=== PATIENT | female | born 1935 | race Caucasian/White ===

== ENCOUNTER 2025-03-11 13:10 | Outpatient (REF) | payer BC, SELFPAY ==
--- OUTSIDE RECORDS SUMMARY | 2025-03-11 15:05 | XMS_ITS | Encounter Summary ---
Author Organization [facility] Address [address] [place] [address] Phone Care Team Providers Care Metal Hanger Name Role Phone Tenisha Delgado Md Primary Care Provider +1 [phone] Encounter Details Date Type Department Care Team (Late st Contact Info) Description 04/18/2022 Telephone [facility] [address] [place] [address] Riky Morales DO [address] [place] [address] Social History Tobacco Use Types Packs/Day Years Used Date Smoking Tobacco: Never Smokeless Tobacco: Never Alcohol Use Standard Drinks/Week Comments No 0 (1 standard drink = 0.6 oz pur e alcohol) Comments Unknown Sex and Gender Information Value Date Recorded Sex Assigned at Not on file Legal Sex Female 4:44 PM EST Gender Identity Not on file Sexual Orientation Not on file documented as of this encounter Miscellaneous Notes * Telephone Encounter - Riky Morales DO - 04/18/2022 3:08 PM EDT All set. * Telephone Encounter - Jacqueline Armijo - 04/18/2022 9:21 AM EDT Pt called, since stopping the isinopril her bp has been high. Today it was 151/89 and she is very light headed. Please call her back at [phone] Thank you documented in this encounter Plan of Treatment Upcoming Encounters Date Type Department Care Team (Late st Contact Info) Description 05/29/2025 1:30 PM EST [facility] [place] [facility] [address] [place] [phone] Alexander Cloud MD [address] [phone] documented as of this encounter Visit Diagnoses Not on filedocumented in this encounter Care Teams Metal Hanger Relationship Specialty Start Date End Date Tenisha Delgado Md [address] [place] [address] PCP - General 03/12/24 documented as of this encounter
--- OUTSIDE RECORDS SUMMARY | 2025-03-11 15:05 | XMS_ITS | Clinical Summary ---
Author Organization [facility] Address [address] [place] [address] Phone Care Team Providers Care Squeegee Finisher Name Role Phone Tenisha Delgado Md Primary Care Provider [phone] [phone] Allergies No known active allergies Medications Calcium-Magnesi um-Vitamin D (CITRACAL CALCIUM+D PO) Take 1 tablet by mouth 1 (one) time each day Active cholecalciferol (VITAMIN D-3) 25 MCG (1000 UT) capsule Take 1 capsule (1,000 Units total) by mouth every other day 06/01/2023 Active amLODIPine (NORVASC) 5 MG tablet Take 1 tablet (5 mg total) by mouth 1 (one) time each day 90 tablet 3 08/23/2024 Active Active Problems Problem Noted Date Diagnosed Date Hyperkalemia 09/26/2024 Chronic kidney disease stage 3 01/18/2022 Hypertensive renal disease 01/18/2022 Vesicoureteric reflux 01/18/2022 Hypertension 01/18/2022 Resolved Problems Problem Noted Date Diagnosed Date Resolved Date Chronic kidney disease, stage 4 (severe) 01/18/2022 05/24/2022 Encounters Date Type Department Care Team Description 01/12/2025 Orders Only [facility] [place] [address] [place] [address] Alexander Cloud MD Chronic kidney disease stage 3 (HCC); Hypertensive renal disease; Hyperkalemia from Last 3 Months Family History Medical History Relation Comments Dementia Father Heart disease Mother Hypertension Mother Diabetes Sibling 1 brother Bill Hypertension Sibling 2 All siblings Heart disease Sibling 3 Brother had a he art attack Cancer Sibling 4 sister had breas t- mastectomy Cancer Sister Relation Status Comments Father Mother Sibling 1 Sibling 2 Sibling 3 Sibling 4 Sister Social History Tobacco Use Types Packs/Day Years Used Date Smoking Tobacco: Never Smokeless Tobacco: Never Tobacco Cessation:Counseling Given: No Alcohol Use Standard Drinks/Week Comments No 0 (1 standard drink = 0.6 oz pur e alcohol) Comments Unknown Sex and Gender Information Value Date Recorded Sex Assigned at Not on file Legal Sex Female 4:44 PM EST Gender Identity Not on file Sexual Orientation Not on file Last Filed Vital Signs Vital Sign Reading Time Taken Comments Blood Pressure 147/74 09/26/2024 1:40 PM EDT Pulse 88 09/26/2024 1:40 PM EDT Temperature - - Respiratory Rate - - Oxygen Saturation - - Inhaled Oxygen Concentration - - Weight 52.2 kg (115 lb) 09/26/2024 1:40 PM EDT Height - - Body Mass Index - - Plan of Treatment Upcoming Encounters Date Type Department Care Team (Late st Contact Info) Description 05/29/2025 1:30 PM EST [facility] [address] [place] [address] Alexander Cloud MD [address] [phone] Health Maintenance Due Date Last Done Comments Pneumococcal Vaccine: 50+ Ye ars (1 of 2 - PCV) 1954 Influenza Vaccine (#1) 2025 Hepatitis B Vaccine Aged Out No longe r eligible based on patient's age to complete this topic Insurance Medicare [facility] Medicare [facility] Care Teams Squeegee Finisher Relationship Specialty Start Date End Date Tenisha Delgado Md [address] [place] [address] PCP - General 03/12/24
[2025-03-11 17:52] LABS: MANUAL DIFF FLAG NO
[2025-03-11 18:22] LABS: Hematocrit 43.8 % (37.0-47.0); Hemoglobin 13.6 g/dl (12.0-16.0); Imm Gran Abs Auto 0.02 X10*3/uL (0.00-0.03); Imm Gran Pct Auto 0.4 % (0.0-0.4); Lymphocytes Absolute Auto 1.1 X10*3/uL (1.2-4.9); Mean Corpuscular HGB Conc 31.1 g/dl (31.0-35.0); Mean Corpuscular Hemoglobin 29.1 pg (27.0-33.0); Mean Corpuscular Volume 93.8 fL (80.0-98.0); NRBC Abs Auto 0.000 X10*3/uL (0.0-0.012); NRBC Pct Auto 0.0 /100WBC (0.0-0.2); Platelet Count 196 X10*3/uL (160-400); Red Blood Count 4.67 X10*6/uL (4.20-5.50); White Blood Count 5.7 X10*3/uL (4.8-10.8)
[2025-03-11 19:21] LABS: Iron 100 mcg/dL (30-160); Percent Iron Saturation 25 % (15-50); Total Iron Binding Capacity 395 mcg/dL (228-428); Unsaturated Iron Binding 295 ug/dL
[2025-03-11 19:46] LABS: Folate 9.1 ng/mL (> or = 4.0); Vitamin B12 276 pg/mL (200-900)
== END 2025-03-11 13:11 | disposition home or self-care (01) ==
LOC: HO.WFDLDS 13:10
PROVIDERS: PCP Internal Medicine; Visit Provider Internal Medicine
DX: I10 Essential (primary) hypertension (principal); M54.50 Low back pain, unspecified; R06.09 Other forms of dyspnea; R68.89 Other general symptoms and signs
CPT/HCPCS: 36415; 82607; 82746; 83540; 83721; 84443; 85025; 96127; 99202

== ENCOUNTER 2025-03-11 13:10 | Outpatient (AMB) | payer MEDICARE, SELFPAY ==
--- NOTE | 2025-03-11 13:15 | A.OFFPC_ITS ---
Vital Signs 03/11/25 13:22 Height 4 ft 8.3 in Weight 117 lb BMI 25.9 BP 134/66 Blood Pressure Location Lt brachial Position Sitting Respiration 14 Pulse 100 Pulse Source Pulse Oximeter Temp 97.8 F Temp Source Oral Pulse Oximetry (%) 93 Oxygen Delivery Method Room Air Intake Visit Reasons: Est. Care Intake Note: New patient visit Senior Clinical Study Manager Required: No Allergies No Known Allergies Allergy (Verified 03/11/25 13:16) Tobacco use date assessed: 03/11/25 Fall risk assessment: No Falls in past year Last assessed Fall Risk: 03/11/25 Dental Screening Dental Screen Date: 03/11/25 Did you have a dental visit in the last 12 months?: Yes Did you have a dental problem in the last 6 months where you did not have access to dental care?: No Was dental information given to patient?: Patient has dentist HPI HPI Comments History of Present Illness Details The patient is an 89 year old female with a past medical history of hypertension, arthritis, low b12 presenting to [facility]. Patient is transferring from [facility], Dr Rhoades. CV: On amlodipine 5mg daily. More short of breath. Stopped walking about one year ago because she was having some shortness of breath. Denies chest pain, wheezing. Some coughing in the morning. Irregular rhythm on exam-EKG sinus with PACs. She was given inhaler with no improvement in symptoms MSK: Low back pain. Worse x one year. No specific injury. Does progressive yoga twice per week. ROS see HPI PHYSICAL EXAM: GENERAL: Alert and oriented x 3. NAD EYES: EOMI. Anicteric. HENT: Moist mucous membranes. No scleral icterus. No cervical lymphadenopathy. LUNGS: Clear to auscultation bilaterally. CARDIOVASCULAR: Regular rate and rhythm. No murmur. No JVD. ABDOMEN: Soft, non-tender +bs EXTREMITIES: No edema. Non-tender. SKIN: No rashes or lesions. Warm. NEUROLOGIC: No focal neurological deficits. CN II-XII grossly intact PSYCHIATRIC: Cooperative. Appropriate mood and affect [facility] Social History Housing: House Patient Tobacco Use Status: Former Tobacco user (cant not recall how many cigarettes a day) Years Smoked: 25 e-Cigarette/Vaping Use: Never Used Second Hand Smoke Exposure: No service: No Current occupational status: retired Cognitive needs: No Hearing needs: No Vision needs: Yes Questionnaire PHQ-9 Over the last 2 weeks, how often have you been bothered by any of the following problems? 1. Little interest or pleasure in doing things: not at all 2. Feeling down, depressed, or hopeless: not at all 3. Trouble falling or staying asleep, or sleeping too much: not at all 4. Feeling tired or having little energy: not at all 5. Poor appetite or overeating: not at all 6. Feeling bad about yourself - or that you are a failure or have let yourself or your family down: not at all 7. Trouble concentrating on things, such as reading the newspaper or watching television: not at all 8. Moving or speaking so slowly that other people could have noticed. Or the opposite - being so fidgety or restless that you have been moving around a lot more than usual: not at all 9. Thoughts that you would be better off or of hurting yourself in some way: not at all Total score: 0 Depression Screening Interpretation: Negative Depression Screening Done: Yes 95148 - PHQ-9 Billing: Yes Source: Developed by Drs. Yong Costa, Rona Stallings, Román Dunlap and colleagues, with an educational latonya from [employer]. Thrive Questionnaire I am a: Patient What is your living situation today?: I have a steady place to live Within the past 12 months, did the food you bought not last and you didn't have the money to get more?: Never true Within the past 12 months, did you worry whether your food would run out before you got money to buy more?: Never true Do you have trouble paying for medicines?: No Do you have trouble getting transportation to medical appointments?: No Do you have trouble paying your heating and electricity bill?: No Do you have trouble taking care of your child, family member or friend?: No Do you have trouble with day-to-day activities such as bathing, preparing meals, shopping, managing finances, etc.?: No Are you currently unemployed and looking for a job?: No Are you interested in more education?: No Please select the resources that you would like help with: None Currently or been in a relationship where the following occur: I choose not to answer THRIVE Score: 0 AUDIT C Alcohol Use Questionnaire (AUDIT-C) 1. How often do you have a drink containing alcohol?: Never 3. How often do you have six or more drinks on one occasion?: Never Total Score: 0 ROBERT-7 AMB Questionnaire ROBERT-7 Feeling nervous, anxious, or on edge: 0 = Not at all Not being able to stop or control worryin = Not at all Worrying too much about different things: 0 = Not at all Trouble relaxin = Not at all Being so restless that it is hard to sit still: 0 = Not at all Becoming easily annoyed or irritable: 0 = Not at all Feeling afraid as if something awful might happen: 0 = Not at all Total ROBERT-7 score (0-4 normal; 5-9 mild; 10-14 moderate; 15-21 severe): 0 Source: Developed by Drs. Yong Costa, Rona Stallings, Román Dunlap and colleagues, with an educational latonya from [employer]. Physical exam (Primary Care) Vital Signs: Last Vital Signs Temp 97.8 F 03/11/25 13:22 Pulse 100 03/11/25 13:22 Resp 14 03/11/25 13:22 BP 134/66 03/11/25 13:22 Pulse Ox 93 03/11/25 13:22 Oxygen Delivery Method Room Air 03/11/25 13:22 BMI result Body Mass Index 25.9 Tobacco/Smoking Status: Tobacco use Status Tobacco use date assessed 03/11/25 03/11/25 13:25 Patient Tobacco Use Status Former Tobacco user (cant 03/11/25 13:25 not recall how many cigarettes a day) e-Cigarette/Vaping Use Never Used 03/11/25 13:25 PHQ-9: PHQ-9 Score PHQ-9: Total score 0 03/16/25 11:33 Depression Screening Interpretation: Negative Currently or been in a relationship where the following occur: I choose not to answer Coding Level of Care Code New Pt Level 4 (35356) Complex EM visit Add On G2211 Diagnoses Primary hypertension I10 Hypertension type: primary hypertension Low back pain, unspecified back pain laterality, unspecified chronicity, unspecified whether sciatica present M54.50 Back pain laterality: unspecified Chronicity: unspecified Sciatica presence: unspecified whether sciatica present Exertional dyspnea R06.09 Additional Codes PHQ-9 - 89019 - PHQ-9 Billing: Yes ([id number]) Assessment & Plan Assessment & Plan (1) Hypertension: Code(s): I10 - Essential (primary) hypertension Category: Medical Qualifiers: Hypertension type: primary hypertension Qualified Code(s): I10 - Essential (primary) hypertension (2) Low back pain: Code(s): M54.50 - Low back pain, unspecified Category: Medical Qualifiers: Back pain laterality: unspecified Chronicity: unspecified Sciatica presence: unspecified whether sciatica present Qualified Code(s): M54.50 - Low back pain, unspecified (3) Exertional dyspnea: Code(s): R06.09 - Other forms of dyspnea Category: Medical Plan 89 year old to establish care Past medical, surgical, social reviewed Low back pain-xray ordered Exertional dyspnea. Suspect intermittent afib, r/o CAD, CHF. Echo ordered, stress test ordered Labs ordered Orders: Orders XR lumbar spine 2-3V 03/11/25 M54.50 - Low back pain, unspecified, R06.09 - Other forms of dyspnea CA echo transthoracic complete 03/11/25 I10 - Essential (primary) hypertension, R06.09 - Other forms of dyspnea IRON PROFILE 03/11/25 I10 - Essential (primary) hypertension, M54.50 - Low back pain, unspecified, R06.09 - Other forms of dyspnea, R68.89 - Other general symptoms and signs Vitamin B12 and Folate 03/11/25 I10 - Essential (primary) hypertension, M54.50 - Low back pain, unspecified, R06.09 - Other forms of dyspnea, R68.89 - Other general symptoms and signs NM cardiolite stress test Today R06.09 - Other forms of dyspnea, R94.31 - Abnormal electrocardiogram [ECG] [EKG] Complete Blood Count Auto Diff 03/11/25 I10 - Essential (primary) hypertension, M54.50 - Low back pain, unspecified, R06.09 - Other forms of dyspnea, R68.89 - Other general symptoms and signs TSH reflex Free T4 03/11/25 I10 - Essential (primary) hypertension, M54.50 - Low back pain, unspecified, R06.09 - Other forms of dyspnea, R68.89 - Other general symptoms and signs LDL Cholesterol Direct 03/11/25 I10 - Essential (primary) hypertension, M54.50 - Low back pain, unspecified, R06.09 - Other forms of dyspnea, R68.89 - Other general symptoms and signs CA stress test Today R06.09 - Other forms of dyspnea, R94.31 - Abnormal electrocardiogram [ECG] [EKG] Medications: New lidocaine 5% leave on most painful area for up to 12 hrs 1 patch topical DAILY 30 ea 3RF
[2025-03-11 13:22] VITALS: BP 134/66; PULSE 100; RESP 14; TEMP 36.6; O2SAT 93; BMI 25.9
--- OUTSIDE RECORDS SUMMARY | 2025-03-11 13:58 | XMS_ITS ---
Author Name [facility] Organization Unknown Care Team Organization Name Specialty Phone Email Start Date End Da te [facility] ACO 03/05/2025 [facility] Claudia Rhoades DO Primary Care 12/23/202202/14 [facility] Gi Bui Primary Care 09/21/2022 024 [facility] [place], CITLALLI Primary Care 05/24/202202/14
== END 2025-03-11 14:01 | disposition home or self-care (01) ==
PROVIDERS: PCP Internal Medicine; Visit Provider Internal Medicine
DX: I10 Essential (primary) hypertension (principal); M54.50 Low back pain, unspecified; R06.09 Other forms of dyspnea

== ENCOUNTER → 2025-04-17 12:44 | Outpatient (REF) | payer MEDICARE, SELFPAY ==
--- NOTE | 2025-04-17 12:47 | CA_ITS ---
Transthoracic Echocardiogram Patient (Last, First, Middle): Rona Payne M Gender: Female Date of : 1935 Age: 89 Procedure Date: 04/17/2025 Procedure Type: Transthoracic Echocardiogram Location: OP Height: 142.24 cm Weight: 53.07 kg BSA: 1.41 m2 Heart Rate: bpm BP: 134 / 66 mmHg Senior Financial Accountant: BENITO Referring MD: Nell Rodriguez MD Symptoms: R06.09 - Other forms of dyspnea Study Quality: Adequate ECG Rhythm: Sinus with PVCs Conclusions: - The left ventricular systolic function is normal. The visually estimated ejection fraction is between 65-70%. - There is mild tricuspid valve regurgitation. - Moderate to severe pulmonary hypertension is present. Findings Left Ventricle Normal left ventricular cavity size. There is normal left ventricular wall thickness. The left ventricular systolic function is normal. The visually estimated ejection fraction is between 65-70%. There is no evidence of regional wall motion abnormalities. Evidence suggests grade I (mild) diastolic dysfunction. Right Ventricle Normal right ventricular cavity size and systolic function. Atria Both atria are normal in size. Aortic Valve There is a normal trileaflet aortic valve. There is no aortic valve stenosis. There is trace (trivial) aortic valve regurgitation. Mitral Valve The mitral valve appears normal. There is trace mitral valve regurgitation. There is no mitral valve stenosis. Pulmonic Valve There is trace pulmonic valve regurgitation. Tricuspid Valve There is mild tricuspid valve regurgitation. The right ventricular systolic pressure is 67 mmHg. Moderate to severe pulmonary hypertension is present. Great Vessels The asc aorta is normal in size. Small plaque is seen in the sinuses of Valsalva. Venous The inferior vena cava is normal in size and collapses greater than 50% with inspiration. Pericardium/Pleural There is no evidence of pericardial effusion. Prior Study Comparison No prior study available for comparison. Measurements 2D Linear Measurements IVSd: 0.91 0.6-0.9/0.6-1.0 cm LVIDd: 3.88 3.9-5.3/4.2-5.9 cm LVIDd Index: 2.75 2.4-3.2/2.2-3.1 cm/m2 LVIDs: 2.09 2.0-3.6 cm LVPWd: 1.01 0.7-1.1 cm LA Diam: 3.30 2.7-3.8/3.0-4.0 cm LAIDs Index: 2.34 1.5-2.3 cm/m2 LV Mass: 141.85 67-162/88-224 g LV Mass Index: 100.61 43-95/49-115 g/m2 LVOT Diam: 2.00 3.0+(-)1.3 cm 2D Systolic Function EF 4C: 73.70 >55% EF 2C: 64.40 >55% EF BiP: 71.10 >55% Mitral Valve MV Pk E: 0.71 MV PK A: 0.85 MV Decel Time: 173.00 E/A: 0.80 E'Lateral: 5.00 E'Medial: 2.83 E/E' Med: 24.90 E/E' Lat: 14.10 PHT: 51.00 MVA PHT: 4.31 Decel [place]: 4.13 Aortic Valve AoV Pk Enoc: 1.50 AoV Mn Enoc: 0.94 AoV VTI: 0.32 AoV Pk Grad: 9.00 Aov Mn Grad: 4.00 ZAK Cont.VTI: 2.32 LVOT LVOT Pk Enoc: 1.09 LVOT Mn Enoc: 0.74 LVOT VTI: 0.23 LVOT Pk Grad: 5.00 LVOT Mn Grad: 2.00 LVOT Diam: 2.00 LVOT Area: 3.14 Diastolic Function MV Pk E: 0.71 MV Pk A: 0.85 E/A: 0.80 E'Medial: 2.83 E/E' Med: 24.90 E' Laterial: 5.00 E/E' Lat: 14.10 Right Ventricle TAPSE (mm): 1.90 TVS' Enoc: 16.20 Tricuspid Valve TR Pk Enoc: 4.01 TR Pk Grad: 64.00 RA Press: 3.00 RVSP: 67.00 Great Vessels Aorta Sinus of Valsalva: 2.94 2.0-3.[address] Ridge: 2.05 1.7-3.4 cm Ao Asc: 3.10 2.1-3.4 cm Updated in Other Vendor System with Status of Final Isaias Hughes MD electronically signed on 04/19/2025 1:12:27 PM with status of Final
--- OUTSIDE RECORDS SUMMARY | 2025-04-17 14:15 | XMS_ITS | Encounter Summary ---
Author Organization [facility] Address [address] [place] [address] Phone Care Team Providers Care Cardiothoracic Physiotherapist Name Role Phone Tenisha Delgado Md Primary Care Provider [phone] [phone] Encounter Details Date Type Department Care Team (Late st Contact Info) Description 04/18/2022 Telephone [facility] [address] [place] [address] Riky Morales DO [address] [place] [address] Social History Tobacco Use Types Packs/Day Years [...] light headed. Please call her back at [phone] Thank you documented in this encounter Plan of Treatment Upcoming Encounters Date Type Department Care Team (Late st Contact Info) Description 05/29/2025 1:30 PM EST Office Visit [facility] [address] [place] [phone] Alexander Cloud MD [address] [phone] documented as of this encounter Visit Diagnoses Not on filedocumented in this encounter Care Teams Cardiothoracic Physiotherapist Relationship Specialty Start Date End Date Tenisha Delgado Md [address] [place] [address] PCP - General 03/12/24 documented as of this encounter
--- OUTSIDE RECORDS SUMMARY | 2025-04-17 14:15 | XMS_ITS | Clinical Summary ---
Author Organization [facility] Address [address] [place] [phone] Phone Care Team Providers Care Mold Injector Name Role Phone Tenisha Delgado Md Primary Care Provider +1 [phone] Allergies No known active allergies Medications Calcium-Magnesi [...] kidney disease, stage 4 (severe) 01/18/2022 05/24/2022 Family History Medical History Relation Comments Dementia [...] Office Visit [facility] [address] [place] [phone] Alexander Cloud MD [address] [phone] Health Maintenance Due Date Last Done Comments Pneumococcal Vaccine: 50+ Ye ars (1 of 2 - PCV) 1954 Influenza Vaccine (#1) 2025 Hepatitis B Vaccine Aged Out No longe r eligible based on patient's age to complete this topic Insurance Medicare [facility] Medicare [facility] Care Teams Mold Injector Relationship Specialty Start Date End Date Tenisha Delgado Md [address] [place] [address] PCP - General 03/12/24
== END ==
LOC: HO.CARD 12:44
PROVIDERS: PCP Internal Medicine; Visit Provider Internal Medicine
DX: R06.09 Other forms of dyspnea (principal); I10 Essential (primary) hypertension
CPT/HCPCS: 93306

== ENCOUNTER → 2025-04-17 12:47 | Outpatient (BNV) | payer MEDICARE, SELFPAY | PROVIDERS: PCP Internal Medicine; Visit Provider Internal Medicine | DX: I27.20 Pulmonary hypertension, unspecified (principal); I36.1 Nonrheumatic tricuspid (valve) insufficiency | CPT/HCPCS: 93306 ==

== ENCOUNTER → 2025-05-08 09:16 | Outpatient (REF) | payer MEDICARE, SELFPAY ==
--- NOTE | ~2025-05-08 | NM_ITS ---
Lexiscan Myocardial perfusion study Indication: Shortness of breath to evaluate for myocardial ischemia Technique: The patient was brought in for a Lexiscan perfusion study on 05/08/2025 and was injected 0.4 mg of Lexiscan intravenously. Within a minute of this injection 25 mCi of sestamibi was given intravenously. Images were obtained using the SPECT gamma camera interlaced with the gating device. Images were obtained in supine position. Resting perfusion study was performed on 05/09/2025. Patient was administered 25 mCi of sestamibi intravenously at rest. Images were then obtained in supine position. Images obtained without without CT attenuation. Total DLP 56 mGy-cm. Images were processed with the software and compared side to side in short axis, horizontal long axis and vertical long axis views. Findings: The stress perfusion study showed nonattenuated images show some thinning of the basal lateral and basal anterolateral wall of the LV myocardium. Remainder of the LV myocardium is normally perfused. Attenuated corrected images show normal uptake of radiotracer in all segments of the LV myocardium. There is suggestion of left ventricular hypertrophy. The gated study shows normal LV systolic function with calculated LVEF of 63%. LV cavity is normal in size. The gated study shows normal systolic wall thickening and contraction of segments. Resting study shows no significant change in perfusion pattern compared to stress perfusion study. Gating at rest reveals normal systolic wall motion with ejection fraction at 68%. The findings are consistent with normal myocardial perfusion. NM/NM cardiolite stress test Impression: 1. Myocardial perfusion imaging study shows normal myocardial perfusion 2. Gated LVEF is 63% 3. Transient ischemic dilatation not present Nondiagnostic changes on EKG. Electronically signed by: Jed Healy MD 05/09/2025 02:53 PM EDT
--- NOTE | 2025-05-08 09:18 | CA_ITS ---
Acquisition Time: 2025-05-08 09:32:22 Total Exercise Time: 00:03:28 Test Indications: Abnormal ECG,Dyspnea Medications: SEE EMAR Protocol: MOD JENIFFER Max HR: 127 BPM 96% of Pred: 132 BPM Max BP: 136/60 mmHG Max Work Load: 1.7 METS Exercise stress test with exercise 3 mins 28 secs of Modified Jeniffer Protocol at a reduced speed of 1.0mph, achieivng 94% MPHR, requested to stop due to severe SOB. No Chest pain or EKG changes at acheived workload. Test switched to Leixscan. Pharmacological stress test with Lexiscan while pt swings her legs in chair, with reports of SOB and feeling funny , with frquent PACs and PVCs, with normotensive response to injection. Nondiagnostic EKG for ischemia. In recovery, pt treated with IVP Aminophylline 75 mg to reverse Lexiscan after which pt slowly retruned to feeling at baseline. Nuclear images pending. Test reviewed with Dr. Healy. Referred By: Nell Rodriguez Electronically Signed By: Kalia Gibbs
== END ==
LOC: HO.CARD 09:16
PROVIDERS: PCP Internal Medicine; Visit Provider Internal Medicine
DX: R06.09 Other forms of dyspnea (principal); R94.31 Abnormal electrocardiogram [ECG] [EKG]
CPT/HCPCS: 78452; 93017; A9500; J0280; J2785

== ENCOUNTER → 2025-05-08 09:18 | Outpatient (BNV) | payer MEDICARE, SELFPAY | PROVIDERS: PCP Internal Medicine | DX: R06.02 Shortness of breath (principal) | CPT/HCPCS: 78452; 93016; 93018 ==

== ENCOUNTER 2025-06-16 10:27 | Outpatient (AMB) | payer BC, SELFPAY ==
--- NOTE | 2025-06-16 10:30 | MHC.PC.OV ---
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 At first visit c/o increased short of breath. Stopped walking about one year ago because she was having some shortness of breath. Denies chest pain, wheezing. No interval worsening. Some coughing in the morning. Irregular rhythm on exam-EKG sinus with PACs. She was given inhaler with no improvement in symptoms. Echo with normal LVEF, mod to severe pulmonary hypertension.Stress test without evidence of ischemia. MSK: Low back pain. Worse x one year. No specific injury. Does progressive yoga twice per week. On fosamax ROS see HPI PHYSICAL EXAM: GENERAL: Alert and oriented x 3. NAD EYES: EOMI. Anicteric. HENT: Moist mucous membranes. No scleral icterus. No cervical lymphadenopathy. LUNGS: Clear to auscultation bilaterally. CARDIOVASCULAR: Regular rate and rhythm. No murmur. No JVD. ABDOMEN: Soft, non-tender +bs EXTREMITIES: No edema. Non-tender. SKIN: No rashes or lesions. Warm. NEUROLOGIC: No focal neurological deficits. CN II-XII grossly intact PSYCHIATRIC: Cooperative. Appropriate mood and affect FOR[facility]LY [facility], [facility] Social History Housing: House Patient Tobacco Use Status: Former Tobacco user (cant not recall how many cigarettes a day) Years Smoked: 25 e-Cigarette/Vaping Use: Never Used Second Hand Smoke Exposure: No service: No Current occupational status: retired Cognitive needs: No Hearing needs: No Vision needs: Yes Questionnaire Thrive Questionnaire Date Thrive assessed: 03/11/25 I am a: Patient What is your living situation today?: I have a steady place to live Within the past 12 months, did the food you bought not last and you didn't have the money to get more?: Never true Within the past 12 months, did you worry whether your food would run out before you got money to buy more?: Never true Do you have trouble paying for medicines?: No Do you have trouble getting transportation to medical appointments?: No Do you have trouble paying your heating and electricity bill?: No Do you have trouble taking care of your child, family member or friend?: No Do you have trouble with day-to-day activities such as bathing, preparing meals, shopping, managing finances, etc.?: No Are you currently unemployed and looking for a job?: No Are you interested in more education?: No Please select the resources that you would like help with: None Currently or been in a relationship where the following occur: I choose not to answer THRIVE Score: 0 Physical exam (Primary Care) Vital Signs: Last Vital Signs Temp 98 F 06/16/25 10:36 Pulse 83 06/16/25 10:36 Resp 14 06/16/25 10:36 BP 112/68 06/16/25 10:36 Pulse Ox 92 06/16/25 10:36 Oxygen Delivery Method Room Air 06/16/25 10:36 BMI result Body Mass Index 24.7 Tobacco/Smoking Status: Tobacco use Status Tobacco use date assessed 03/11/25 06/16/25 10:30 Patient Tobacco Use Status Former Tobacco user (cant 06/16/25 10:30 not recall how many cigarettes a day) e-Cigarette/Vaping Use Never Used 06/16/25 10:30 Thrive Assessment: Date of Thrive Assessment Date Thrive assessed 03/11/25 06/16/25 10:30 Currently or been in a relationship where the following occur: I choose not to answer Coding Level of Care Code Complex visit Add On G2211 Diagnoses Exertional dyspnea R06.09 Primary hypertension I10 Hypertension type: primary hypertension Low back pain, unspecified back pain laterality, unspecified chronicity, unspecified whether sciatica present M54.50 Chronicity: unspecified Back pain laterality: unspecified Sciatica presence: unspecified whether sciatica present Assessment & Plan Assessment & Plan (1) Exertional dyspnea: Code(s): R06.09 - Other forms of dyspnea Category: Medical (2) Hypertension: Code(s): I10 - Essential (primary) hypertension Category: Medical Qualifiers: Hypertension type: primary hypertension Qualified Code(s): I10 - Essential (primary) hypertension (3) Low back pain: Code(s): M54.50 - Low back pain, unspecified Category: Medical Qualifiers: Chronicity: unspecified Back pain laterality: unspecified Sciatica presence: unspecified whether sciatica present Qualified Code(s): M54.50 - Low back pain, unspecified Plan 89 year old for follow up Interval history reviewed Dyspnea-PFTs ordered. Consider pulmonary consult. mod/severe pulm htn HTN is well controlled on current medications Orders: Orders PFT pulmonary function test 06/16/25 R06.09 - Other forms of dyspnea
[2025-06-16 10:36] VITALS: BP 112/68; PULSE 83; RESP 14; TEMP 36.6; O2SAT 92; BMI 24.7
== END 2025-06-16 10:56 | disposition home or self-care (01) ==
LOC: HO.HMCFM 10:27
PROVIDERS: PCP Internal Medicine; Visit Provider Internal Medicine
DX: R06.09 Other forms of dyspnea (principal); I10 Essential (primary) hypertension; M54.50 Low back pain, unspecified